=== PATIENT | female | born 1935 | race Caucasian/White ===

== ENCOUNTER 2017-02-22 15:06 | Outpatient (CLI) | payer MEDICARE | END 2017-02-22 15:07 | disposition home or self-care (01) | LOC: DI 15:06 | PROVIDERS: ATTEND Internal Medicine | DX: R35.8 Other polyuria (principal) ==

== ENCOUNTER 2017-03-07 13:14 | Outpatient (CLI) | payer OTHER ==
[2017-03-07] MEDS ORDERED: IOPAMIDOL-300 100 ML VIAL ONE (13:53)
[2017-03-07] MEDS ORDERED: IOPAMIDOL-300 50 ML VIAL ONE (13:53)
[2017-03-07 15:20] LABS: CREATININE 1.1 mg/dL (0.4-1.0)
--- NOTE | 2017-03-08 11:24 | CT Report ---
CT ABDOMEN AND PELVIS WITH CONTRAST: 03/07/2017 CLINICAL INDICATION: Increasing creatinine, decreasing urine output, pain. TECHNIQUE: Axial CT images of the abdomen and pelvis were obtained with 50 mL of Isovue-300 intraven ously as well as oral contrast. Additionally, as requested, bony reconstruction of the pelvis was pe rformed, to allow for further evaluation of the sacroiliac joints. No previous CT is available for c omparison. FINDINGS: Limited evaluation of the lung bases demonstrates a moderate hiatal hernia. ABDOMEN: The liver, spleen, pancreas, kidneys and adrenal glands appear unremarkable. No bowel dila tation, free gas, or free fluid is present. No abdominal adenopathy is seen. PELVIS: The patient is status post hysterectomy. No pelvic adenopathy or free fluid is present. A few sigmoid diverticula are seen, without CT evidence of diverticulitis. Osseous structures demonstrate degenerative changes. The sacroiliac joints demonstrate mild osteoart hritis, but no evidence of erosion or fusion. IMPRESSION: NO EVIDENCE OF NEPHROLITHIASIS OR HYDRONEPHROSIS. NO EVIDENT ETIOLOGY FOR PATIENT'S DEC REASING URINE OUTPUT OR RISING CREATININE. MILD OSTEOARTHRITIS OF THE SACROILIAC JOINTS, BUT THERE I S NO EVIDENCE OF FUSION OR EROSION. In accordance with CT protocol optimization, one or more of the following dose reduction techniques w ere utilized for this exam: automated exposure control, adjustment of mA and/or KV based on patient size, or use of iterative reconstructive technique. JOB #: [id number] EXT JOB #:[id number]
== END 2017-03-07 13:15 | disposition home or self-care (01) ==
LOC: DI 13:14
PROVIDERS: ATTEND Internal Medicine
DX: R79.89 Other specified abnormal findings of blood chemistry (principal); R34 Anuria and oliguria
CPT/HCPCS: 36415; 74177; 82565; Q9967; 80053; 82607; 82746; 84439; 84443; 84480; 85025

== ENCOUNTER 2017-08-21 11:04 | Outpatient (CLI) | payer OTHER ==
--- NOTE | 2017-08-21 14:13 | XRAY Report ---
EXAM: CHEST RADIOGRAPHY EXAM DATE: 08/21/2017 11:23 AM. CLINICAL HISTORY: SYNCOPE AND COLLAPSE,ORTHOSTATIC HYPOTENSION. COMPARISON: None. TECHNIQUE: 2 views. FINDINGS: Lungs/Pleura: No focal consolidation evident. No pleural effusion. No pneumothorax. Mild hyperinflati on. Mediastinum: Cardiac silhouette is normal in size. Moderate hiatal hernia. Other: None. IMPRESSION: No radiographically apparent acute abnormality in the chest. [facility] Referring Provider Line: [phone] SITE ID: [id number]
== END 2017-08-21 11:05 | disposition home or self-care (01) ==
LOC: DI 11:04
PROVIDERS: ATTEND Internal Medicine
DX: R55 Syncope and collapse (principal); I95.1 Orthostatic hypotension
CPT/HCPCS: 71046